=== PATIENT | female | born 1980 | race American Indian/Alaskan Native ===

== ENCOUNTER 2019-01-11 09:58 | Emergency (ER) | payer OTHER, MEDICAID ==
[2019-01-11 10:24] VITALS: BP 132/86
[2019-01-11] MEDS ORDERED: DELTASONE PO ONE (12:28)
[2019-01-11] MEDS ORDERED: IBUPROFEN PO ONE (12:28)
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
== END 2019-01-11 12:47 | disposition home or self-care (01) ==
LOC: ED 09:58
DX: M79.10 Myalgia, unspecified site (principal); Z79.899 Other long term (current) drug therapy; V43.52XA Car driver injured in collision with other type car in traffic accident, initial encounter; Y93.89 Activity, other specified; Y92.410 Unspecified street and highway as the place of occurrence of the external cause; Y99.8 Other external cause status
CPT/HCPCS: 99282; J7512